=== PATIENT | female | born 1970 | race Caucasian/White ===

== ENCOUNTER → 2024-03-12 | Day surgery (SDC) | payer OTHER | END | disposition home or self-care (01) | LOC: JRADUS-SUR 07:35 | PROVIDERS: ATTEND Family Medicine | PROC: 0HBT0ZX Excision of Right Breast, Open Approach, Diagnostic (ICD-10-PCS; principal; 2024-03-12) | DX: N60.01 Solitary cyst of right breast (principal) | CPT/HCPCS: 19000; 76942-TC; 77065-TC; 87899; 88173; 88305-TC ==